=== PATIENT | male | born 1995 | race Caucasian/White ===

== ENCOUNTER 2017-08-18 12:45 | Emergency (ER) | payer SELFPAY ==
[2017-08-18 13:16] VITALS: BP 141/69
--- NOTE | 2017-08-18 14:23 | UC ---
UC General HPI - HPI Summary HPI Summary: 22 yo male presents with one month hx of fatigue/weakness/headache/myalgias and arthralgias fever and chills at times no swollen glands or rash no cough no n/v/d no uti symptoms no uri symptom no known tick bite no wt loss or gain - History of Current Complaint Chief Complaint: UCGeneralIllness Stated Complaint: BODY ACHES Time Seen by Provider: 08/18/17 14:13 Hx Obtained From: Patient Onset/Duration: Sudden Onset, Lasting Weeks Timing: Constant Onset Severity: Moderate Current Severity: Moderate Pain Intensity: 6 Associated Signs & Symptoms: Positive: Fever - jazmine at times, Headache, Weakness. Negative: Agitation, Abdominal Pain, Anticoagulation Therapy, Back Pain, Confusion, Cough, Chest Pain, Decreased Responsiveness, Dizziness, Diarrhea, Dysuria, Decreased Oral Intake, Diaphoresis, Edema, Hematemesis, Hemoptysis, Immunocompromised, In-Dwelling Medication Device, Melena, Nausea, Palpitations, Recent Medication Changes, Syncope, SOB, Trauma, Vomiting, Wheezing - Allergy/Home Medications Allergies/Adverse Reactions: Allergies Allergy/AdvReac Type Severity Reaction Status Date / Time No Known Allergies Allergy Verified 08/18/17 13:16 Home Medications: Home Medications Amoxicillin PO (*) [Amoxicillin 875 MG (*)] 875 mg PO BID 08/18/17 [History Confirmed 08/18/17] PMH/Surg Hx/FS Hx/Imm Hx Previously Healthy: Yes - Surgical History Surgical History: None - Family History Known Family History: Positive: Hypertension Negative: Cardiac Disease, Diabetes - Social History Alcohol Use: None Substance Use Type: None Smoking Status (MU): Former Smoker Type: Cigarettes, Smokeless Tobacco Amount Used/How Often: 1/2 PPD Length of Time of Smoking/Using Tobacco: 3 YEARS Have You Smoked in the Last Year: Yes - CHEWING TOBACCO - Immunization History Most Recent Influenza Vaccination: none Most Recent Tetanus Shot: within past 3 years. Most Recent Pneumonia Vaccination: never Review of Systems Constitutional: Fever - jazmine, Chills, Fatigue Skin: Negative Eyes: Negative ENT: Negative Respiratory: Negative Cardiovascular: Negative Gastrointestinal: Negative Genitourinary: Negative Motor: Negative Neurovascular: Negative Musculoskeletal: Arthralgia, Myalgia Neurological: Headache Psychological: Negative Is Patient Immunocompromised?: No All Other Systems Reviewed And Are Negative: Yes Physical Exam Triage Information Reviewed: Yes Appearance: Well-Appearing, No Pain Distress, Well-Nourished Vital Signs: Initial Vital Signs Temp 98.6 F 08/18/17 13:11 Pulse 85 08/18/17 13:11 Resp 16 08/18/17 13:11 BP 141/69 08/18/17 13:11 Pulse Ox 100 08/18/17 13:11 Vital Signs Reviewed: Yes Eyes: Positive: Conjunctiva Clear ENT: Positive: Hearing grossly normal, Pharynx normal, TMs normal, Uvula midline. Negative: Nasal congestion, Nasal drainage, TM bulging, TM dull, TM red, Tonsillar swelling, Tonsillar exudate, Trismus, Muffled voice, Hoarse voice , Dental tenderness, Sinus tenderness Dental Exam: Normal Neck: Positive: Supple, Nontender, No Lymphadenopathy Respiratory: Positive: Lungs clear, Normal breath sounds, No respiratory distress, No accessory muscle use Cardiovascular: Positive: RRR, No Murmur. Negative: Tachycardia, Bradycardia Abdomen Description: Positive: Nontender, No Organomegaly, Soft. Negative: CVA Tenderness (R), CVA Tenderness (L), Distended, Guarding, Hepatomegaly, McBurney' s Point Tenderness, Peritoneal Signs, Pulsatile Mass, Splenomegaly Musculoskeletal: Positive: ROM Intact, No Edema Neurological: Positive: Alert Psychological Exam: Normal Skin Exam: Normal Skin: Negative: rashes Course/Dx - Differential Dx - Multi-Symptom Provider Diagnoses: fatigue/myalgias/arthralgias of uncertain cause Discharge - Discharge Plan Condition: Stable Disposition: HOME Patient Education Materials: Weakness (ED), Arthralgia (ED), Fatigue (ED) Referrals: [facility] [place] [facility] [Outside] - As Soon As Possible Additional Instructions: blood work pending rest aleve 2 pills twice daily with food as needed for pain
[2017-08-18 14:36] LABS: EBV Response YES
[2017-08-18 19:03] LABS: Hematocrit 42 % (42-52); Hemoglobin 14.4 g/dl (14.0-18.0); Mean Corpuscular HGB Conc 34 g/dl (31-36); Mean Corpuscular Hemoglobin 30 pg (27-31); Mean Corpuscular Volume 88 fL (80-94); Mean Platelet Volume 7 um3 (7.4-10.4); Red Blood Count 4.76 10^6/ul (4.0-5.4); Red Cell Distribution Width 13 % (10.5-15); White Blood Count 7.4 10^3/ul (3.5-10.8)
[2017-08-18 19:24] LABS: Albumin 4.2 g/dL (3.2-5.2); BUN/Creatinine Ratio 12.5 (8-20); EGFR African American 154.1 (>60); EGFR Non-African American 119.8 (>60); Globulin 2.8 g/dL (2-4); Potassium 3.9 mmol/L (3.5-5.0); Total Bilirubin 0.2 mg/dL (0.2-1.0)
[2017-08-18 19:29] LABS: Mono Internal Control QC Line Present
[2017-08-18 20:57] LABS: Erythrocyte Sed Rate 17 mm/Hr (0-14)
[2017-08-20 16:18] LABS: EBV Capsid Ag IgG Ab Positive (Negative); EBV Capsid Ag IgM Ab Negative (Negative)
--- NOTE | 2017-08-21 07:44 | UC ---
Progress - Progress Note Progress Note: Can call regarding lab work. Has had mono in the past, but it is not a new infection Lyme serology is still pending. Labs not suggestive of rheumatoid arthritis. /
== END 2017-08-18 14:30 | disposition home or self-care (01) ==
LOC: UCEAST 12:45
DX: R53.83 Other fatigue (principal); M79.1 Myalgia; M25.50 Pain in unspecified joint; Z87.891 Personal history of nicotine dependence
CPT/HCPCS: 36415; 80053; 85025; 85652; 86038; 86308; 86618; 86664; 86665; 99211; G0463

== ENCOUNTER 2019-01-17 16:21 | Emergency (ER) | payer OTHER ==
[2019-01-17] MEDS ORDERED: Acetaminophen TAB* 325 MG PO ONE (16:57)
[2019-01-17 16:58] VITALS: BP 123/62
[2019-01-17 17:16] LABS: Influenza A Molecular POSITIVE (Negative)
--- NOTE | 2019-01-17 17:51 | UC ---
FLU HPI - HPI Summary HPI Summary: 23-year-old male comes in with chief complaint of sudden onset yesterday of fevers chills body aches. He does have runny nose he's also had a cough. The sore throat that is worse with a cough. [id number] medications help somewhat the symptoms but not very much. No shortness of breath. - History of Current Complaint Chief Complaint: UCRespiratory Stated Complaint: VOMITTING,FEVER Time Seen by Provider: 01/17/19 17:04 Pain Intensity: 6 - Allergy/Home Medications Allergies/Adverse Reactions: Allergies Allergy/AdvReac Type Severity Reaction Status Date / Time No Known Allergies Allergy Verified 01/17/19 16:56 Home Medications: Home Medications Acetaminophen [Acetaminophen Extra Strength] 1,000 mg PO Q6H PRN 01/17/19 [ History Confirmed 01/17/19] Omeprazole CAP (NF) [Prilosec CAP* 20 MG] 20 mg PO DAILY 01/17/19 [History Confirmed 01/17/19] PMH/Surg Hx/FS Hx/Imm Hx Previously Healthy: Yes GI/ History: Gastroesophageal Reflux - Surgical History Surgical History: None - Family History Known Family History: Positive: Hypertension Negative: Cardiac Disease, Diabetes - Social History Alcohol Use: None Substance Use Type: None Smoking Status (MU): Heavy Every Day Tobacco Smoker Type: Cigarettes, Smokeless Tobacco Amount Used/How Often: 1 PPD Length of Time of Smoking/Using Tobacco: Since Age 12 Have You Smoked in the Last Year: Yes - CHEWING TOBACCO - Immunization History Most Recent Influenza Vaccination: none Most Recent Tetanus Shot: within past 3 years. Most Recent Pneumonia Vaccination: never Review of Systems All Other Systems Reviewed And Are Negative: Yes Constitutional: Positive: Fever, Chills, Fatigue Skin: Positive: Negative Eyes: Positive: Negative ENT: Positive: Sore Throat, Nasal Discharge, Sinus Congestion Respiratory: Positive: Cough Cardiovascular: Positive: Negative Gastrointestinal: Positive: Negative Motor: Positive: Negative Neurovascular: Positive: Negative Musculoskeletal: Positive: Myalgia Neurological: Positive: Negative Psychological: Positive: Negative Is Patient Immunocompromised?: No Physical Exam Triage Information Reviewed: Yes Appearance: No Pain Distress, Well-Nourished, Ill-Appearing - MILD Vital Signs: Initial Vital Signs Temp 103.9 F 01/17/19 16:54 Pulse 127 01/17/19 16:54 Resp 28 01/17/19 16:54 BP 123/62 01/17/19 16:54 Pulse Ox 97 01/17/19 16:54 Vital Signs Reviewed: Yes Eye Exam: Normal Eyes: Positive: Conjunctiva Clear Neck: Positive: Supple Respiratory: Positive: Lungs clear, Normal breath sounds, No respiratory distress Cardiovascular: Positive: Tachycardia Musculoskeletal Exam: Normal Musculoskeletal: Positive: Strength Intact, ROM Intact Neurological Exam: Normal Neurological: Positive: Alert, Muscle Tone Normal Psychological Exam: Normal Psychological: Positive: Normal Response To Family, Age Appropriate Behavior Skin Exam: Normal Flu Course/Dx - Differential Dx/Diagnosis Provider Diagnosis: Influenza Discharge - Sign-Out/Discharge Documenting (check all that apply): Patient Departure All imaging exams completed and their final reports reviewed: No Studies - Discharge Plan Condition: Stable Disposition: HOME Prescriptions: Oseltamivir CAP* [Tamiflu CAP*] 75 mg PO BID #10 cap Patient Education Materials: Influenza (ED) Forms: *Work Release Referrals: [facility] [place] [facility] [Outside] Additional Instructions: FOLLOW UP WITH YOUR DOCTOR IF NOT COMPLETELY IMPROVED. GET REEVALUATED SOONER IF YOUR CONDITION WORSENS OR ANY QUESTIONS OR CONCERNS. - Billing Disposition and Condition Condition: STABLE Disposition: Home
== END 2019-01-17 18:09 | disposition home or self-care (01) ==
LOC: UCCORT 16:21
DX: J11.1 Influenza due to unidentified influenza virus with other respiratory manifestations (principal); K21.9 Gastro-esophageal reflux disease without esophagitis; F17.220 Nicotine dependence, chewing tobacco, uncomplicated
CPT/HCPCS: 99212; A9270-GY; G0463

== ENCOUNTER 2019-05-07 17:05 | Emergency (ER) | payer OTHER ==
[2019-05-07 18:46] VITALS: BP 135/79
[2019-05-07] MEDS ORDERED: Albuterol/Ipratropium NEB.SOL* Albuterol 2.5 MG/Ipratropium 0.5 MG 3 ML INH ONE (19:20)
--- NOTE | 2019-05-07 19:21 | UC ---
Respiratory Complaint HPI - HPI Summary HPI Summary: cough and chest tightness worsening over the past 3 days - History of Current Complaint Chief Complaint: UCRespiratory Stated Complaint: COUGH,CONGESTION ETA 15 MIN Time Seen by Provider: 05/07/19 19:12 Hx Obtained From: Patient Onset/Duration: Gradual Onset, Lasting Days - 3 Pain Intensity: 3 Pain Scale Used: 0-10 Numeric Character: Cough: Productive Aggravating Factors: Nothing Alleviating Factors: Nothing Associated Signs And Symptoms: Positive: Pleuritic Chest Pain, URI, Nasal Congestion - Allergies/Home Medications Allergies/Adverse Reactions: Allergies Allergy/AdvReac Type Severity Reaction Status Date / Time No Known Allergies Allergy Verified 05/07/19 18:46 Home Medications: Home Medications Loratadine/Pseudoephedrine [Claritin-D 24 Hour Tablet] 1 tab PO DAILY 05/07/19 [ History Confirmed 05/07/19] Methylphenidate ER TAB* [Concerta ER TAB*] 1 tab PO DAILY 05/07/19 [History Confirmed 05/07/19] PMH/Surg Hx/FS Hx/Imm Hx Previously Healthy: No GI/ History: Gastroesophageal Reflux Psychological History: Other Other Psychological History: ADHD - Surgical History Surgical History: None - Family History Known Family History: Positive: Hypertension Negative: Cardiac Disease, Diabetes - Social History Occupation: Employed Full-time Lives: With Family Alcohol Use: Occasionally Substance Use Type: None Smoking Status (MU): Heavy Every Day Tobacco Smoker Type: Cigarettes, Smokeless Tobacco Amount Used/How Often: 1 PPD Length of Time of Smoking/Using Tobacco: Since Age 12 Have You Smoked in the Last Year: Yes - CHEWING TOBACCO - Immunization History Most Recent Influenza Vaccination: none Most Recent Tetanus Shot: within past 3 years. Most Recent Pneumonia Vaccination: never Review of Systems All Other Systems Reviewed And Are Negative: Yes Constitutional: Positive: Fatigue Skin: Positive: Negative Eyes: Positive: Negative ENT: Positive: Nasal Discharge Respiratory: Positive: Shortness Of Breath, Cough Cardiovascular: Positive: Negative Gastrointestinal: Positive: Negative Genitourinary: Positive: Negative Motor: Positive: Negative Neurovascular: Positive: Negative Musculoskeletal: Positive: Myalgia Neurological: Positive: Negative Psychological: Positive: Negative Is Patient Immunocompromised?: No Physical Exam Triage Information Reviewed: Yes Appearance: No Pain Distress, Well-Nourished, Ill-Appearing Vital Signs: Initial Vital Signs Temp 98.8 F 05/07/19 18:44 Pulse 95 05/07/19 18:44 Resp 18 05/07/19 18:44 BP 135/79 05/07/19 18:44 Pulse Ox 97 05/07/19 18:44 Vital Signs Reviewed: Yes Eye Exam: Normal Eyes: Positive: Conjunctiva Clear ENT Exam: Normal ENT: Positive: Normal ENT inspection, Hearing grossly normal, Pharynx normal, Nasal congestion, TMs normal, Uvula midline. Negative: Tonsillar swelling, Trismus, Muffled voice, Hoarse voice, Dental tenderness, Sinus tenderness Dental Exam: Normal Neck exam: Normal Neck: Positive: Supple, Nontender Respiratory Exam: Other Respiratory: Positive: Chest non-tender, No respiratory distress, No accessory muscle use, Decreased breath sounds Cardiovascular Exam: Normal Cardiovascular: Positive: RRR, No Murmur, Pulses Normal, Brisk Capillary Refill Musculoskeletal Exam: Normal Musculoskeletal: Positive: Strength Intact, ROM Intact, No Edema Neurological Exam: Normal Neurological: Positive: Alert, Muscle Tone Normal Psychological Exam: Normal Skin Exam: Normal Re-Evaluation - Re-Evaluation First Eval Change: Improved - chest feels less tight and increased air movement after neb Respiratory Course/Dx - Course Course Of Treatment: d/c to home with mdi and spacer, tapering course of prednisone and zithromax, education regarding smoking cessation, bronchospasm - Differential Dx/Diagnosis Provider Diagnosis: Acute bronchitis with bronchospasm, Nicotine dependence Discharge - Sign-Out/Discharge Documenting (check all that apply): Patient Departure All imaging exams completed and their final reports reviewed: No Studies - Discharge Plan Condition: Stable Disposition: HOME Prescriptions: Albuterol HFA INHALER* [Ventolin HFA Inhaler*] 2 puff INH Q4H PRN #1 mdi PRN Reason: chest tightness/cough Azithromycin TAB* [Zithromax TAB (Z-MIRIAN) 250 mg #6 tabs] 2 tab PO .TODAY, THEN 1 DAILY #1 mirian predniSONE [Prednisone 20 MG TAB] 20 mg PO DAILY #15 tablet Patient Education Materials: How to Stop Smoking (ED), Acute Bronchitis (ED), Secondhand Smoke Exposure in Children (ED), Bronchospasm (ED), How to Use a Metered-Dose Inhaler and a Spacer (ED) Referrals: Raudel Burton PA [Primary Care Provider] - 1 Week - Billing Disposition and Condition Condition: STABLE Disposition: Home
== END 2019-05-07 20:30 | disposition home or self-care (01) ==
LOC: UCEAST 17:05
DX: J20.9 Acute bronchitis, unspecified (principal); K21.9 Gastro-esophageal reflux disease without esophagitis; F17.210 Nicotine dependence, cigarettes, uncomplicated
CPT/HCPCS: 99212; A9270-GY; G0463

== ENCOUNTER 2019-09-21 12:49 | Emergency (ER) | payer SELFPAY ==
[2019-09-21 12:58] VITALS: BP 135/90
--- NOTE | 2019-09-21 13:00 | UC ---
Dental HPI - HPI Summary HPI Summary: 24 yo male presents with dental pain. He tells me that over the last 2-3 years he has been having intermittent right lower dental pain. He has seen a dentist for this in the past and states had many cavities filled, but about a year ago they fell out and gets intermittent pain and swelling here since. He says a few times a week he will push on his right lower gum line and express purulent yellow pus and pain/swelling improves. Over the last week has noticed increased swelling to his right lower jaw. Denies fever, chills, n/v. Has been taking tylenol/ibuprofen for discomfort with little relief. - History of Current Complaint Chief Complaint: UCDentalProblem Stated Complaint: DENTAL COMPLAINT Time Seen by Provider: 09/21/19 12:58 Hx Obtained From: Patient Onset/Duration: Gradual Onset Severity: Moderate Pain Intensity: 7 Pain Scale Used: 0-10 Numeric - Allergies/Home Medications Allergies/Adverse Reactions: Allergies Allergy/AdvReac Type Severity Reaction Status Date / Time No Known Allergies Allergy Verified 09/21/19 12:58 PMH/Surg Hx/FS Hx/Imm Hx - Additional Past Medical History Additional PMH: ADHD Allergies - Surgical History Surgical History: None - Family History Known Family History: Positive: Hypertension Negative: Cardiac Disease, Diabetes - Social History Lives: With Family Alcohol Use: Occasionally Substance Use Type: None Smoking Status (MU): Heavy Every Day Tobacco Smoker Type: Cigarettes, Smokeless Tobacco Amount Used/How Often: 1 PPD Length of Time of Smoking/Using Tobacco: Since Age 12 Have You Smoked in the Last Year: Yes - CHEWING TOBACCO - Immunization History Most Recent Influenza Vaccination: none Most Recent Tetanus Shot: within past 3 years. Most Recent Pneumonia Vaccination: never Review of Systems All Other Systems Reviewed And Are Negative: No Constitutional: Positive: Negative Skin: Positive: Negative Eyes: Positive: Negative ENT: Positive: Dental Pain Respiratory: Positive: Negative Cardiovascular: Positive: Negative Neurological: Positive: Negative Psychological: Positive: Negative Physical Exam - Summary Physical Exam Summary: GENERAL: NAD. WDWN. No pain distress. SKIN: No rashes, sores, lesions, or open wounds. HEENT: Head: AT/NC Nose: Nasal mucosa pink and moist. NTTP maxillary and frontal sinus. Throat: Posterior oropharynx without exudates, erythema, or tonsillar enlargement. Uvula midline. NECK: Supple. Nontender. No lymphadenopathy. CHEST: No accessory muscle use. Breathing comfortably and in no distress. CV: RRR. Pulses intact. Cap refill <2seconds NEURO: Alert. PSYCH: Age appropriate behavior. Triage Information Reviewed: Yes Vital Signs: Initial Vital Signs Temp 98 F 09/21/19 12:55 Pulse 100 09/21/19 12:55 Resp 20 09/21/19 12:55 BP 135/90 09/21/19 12:55 Pulse Ox 100 09/21/19 12:55 Vital Signs Reviewed: Yes Dental: Positive: Percussion Tenderness @ - Tooth 29-31, Gross Decay/Caries @ - throughout, Cellulitis @ - Tooth 29-31. Negative: Dental Fracture @, Abscess @ , Cervical Lymphadenopathy, Bleeding Dental Complaint Course/Dx - Course Course Of Treatment: Dental pain without appreciable abscess. He does have some right lower jaw swelling on exam with tenderness - will rx for clindamycin for gum cellulitis and have him f/u with a dentist for further care - Differential Dx/Diagnosis Provider Diagnosis: Pain, dental Discharge ED - Sign-Out/Discharge Documenting (check all that apply): Patient Departure All imaging exams completed and their final reports reviewed: No Studies - Discharge Plan Condition: Stable Disposition: HOME Prescriptions: Chlorhexidine MW 0.12% 473ML* [Peridex Mouth Wash 0.12%] 15 ml MT BID #1 bottle Clindamycin HCl 300 mg PO TID #21 capsule Referrals: Ruadel Burton PA [Primary Care Provider] - Additional Instructions: If you develop a fever, shortness of breath, chest pain, new or worsening symptoms - please call your PCP or go to the ED immediately. Your blood pressure was high at todays visit. Please see your primary provider within 4 weeks for recheck and re-evaluation. Please schedule an appointment with a dentist as soon as possible for further evaluation - Billing Disposition and Condition Condition: STABLE Disposition: Home
== END 2019-09-21 13:14 | disposition home or self-care (01) ==
LOC: UCEAST 12:49
DX: K08.89 Other specified disorders of teeth and supporting structures (principal); F90.9 Attention-deficit hyperactivity disorder, unspecified type; F17.210 Nicotine dependence, cigarettes, uncomplicated; F17.290 Nicotine dependence, other tobacco product, uncomplicated
CPT/HCPCS: 99212; G0463